=== PATIENT | male | born 1995 | race Asian ===

== ENCOUNTER 2019-11-22 09:17 | Inpatient (IN) ==
[2019-11-22] MEDS ORDERED: Metoclopramide 5 MG/ML VIAL (10 mg) IV ONE (09:32)
[2019-11-22] MEDS ORDERED: NS 0.9% 1000 ml BAG 1,000 ML IV ONE (09:32)
[2019-11-22] MEDS ORDERED: Iohexol 300 (CONTRAST) 10 ML SDV IV ONE (09:49)
[2019-11-22] MEDS ORDERED: Morphine 4 MG/ML VIAL (1 ml) IV ONE (09:50)
[2019-11-22] MEDS ORDERED: Morphine 4 MG/ML VIAL (1 ml) ONE (09:51)
[2019-11-22 10:04] LABS: ABS Lymphocytes 1.5 10^3/ul (1.0-4.8); ABS Monocytes 0.7 10^3/ul (0-0.8); Eosinophil % 0.4 %; Hematocrit 41 % (42-52); Hemoglobin 14.4 g/dL (14.0-18.0); Lymphocyte % 16.2 %; Mean Corpuscular HGB Conc 35 g/dL (31-36); Mean Corpuscular Hemoglobin 34 pg (27-31); Mean Corpuscular Volume 96 fL (80-94); Mean Platelet Volume 6.5 fL (7.4-10.4); Nucleated Red Blood Cells % 0.1; Platelet Count 461 10^3/uL (150-450); Red Blood Count 4.28 10^6 /uL (4.18-5.48); Red Cell Distribution Width 13 % (10-15); White Blood Count 9.4 10^3/uL (3.5-10.8)
[2019-11-22 10:23] LABS: ALT 17 U/L (7-52); AST 21 U/L (13-39); Albumin 4.7 g/dL (3.2-5.2); Alkaline Phosphatase 100 U/L (34-104); Anion Gap 18 mmol/L (2-11); BUN/Creatinine Ratio 12.7 (8-20); Blood Urea Nitrogen 15 mg/dL (6-24); C Reactive Protein 13.34 mg/L (<8.01); CO2 Carbon Dioxide 23 mmol/L (22-32); Calcium 10.7 mg/dL (8.6-10.3); Chloride 97 mmol/L (101-111); EGFR Non-African American 75.2 (>60); Globulin 4.6 g/dL (2-4); Glucose 114 mg/dL (70-100); Potassium 3.4 mmol/L (3.5-5.0); Sodium 138 mmol/L (135-145); Total Protein 9.3 g/dL (6.4-8.9)
[2019-11-22] MEDS ORDERED: Piperacillin/Tazobac ADVAN(*) 3.375 GM in NS 0.9% 100 ml BAG 100 ML IVPB ONE (10:24)
[2019-11-22] MEDS ORDERED: LORazepam 2 mg VIAL 1 ml IV PUSH ONE (10:25)
[2019-11-22] MEDS ORDERED: Lorazepam PYXIS KEY PRN (10:25)
[2019-11-22] MEDS ORDERED: Lorazepam PYXIS KEY ONE (10:28)
[2019-11-22] MEDS: NS 0.9% 1000 ml BAG 2,000 ML IV ONE (10:47)
[2019-11-22] MEDS ORDERED: HYDROcodone/ACETAMIN 5/325 mg TAB PO PRN (12:05)
[2019-11-22 12:10] LABS: Magnesium 1.8 mg/dL (1.9-2.7)
[2019-11-22] MEDS ORDERED: Magnesium Sulfate IV 1GM/100ML 1 GM/100 ML BAG IV ONE (12:28)
[2019-11-22] MEDS: NS 0.9% 1000 ml BAG 1,000 ML IV SCH ×2 (12:28→23:33)
[2019-11-22] MEDS: KCL 20 MEQ/100 ML IVPREMIX 20 MEQ/100 ML BAG IV SCH ×2 (12:28→16:40)
[2019-11-22 14:47] LABS: Urine Appearance Clear; Urine Bilirubin Negative (Negative); Urine Blood Negative (Negative); Urine Color Yellow; Urine Glucose Negative (Negative); Urine Ketones 1+ (Negative); Urine Nitrite Negative (Negative); Urine Protein Negative (Negative); Urine Urobilinogen Negative (Negative)
[2019-11-22] MEDS: Ondansetron 4 mg VIAL 2 MG/ML 2 ml VIAL IV PRN ×2 (16:48→22:00)
[2019-11-23 05:24] LABS: BUN/Creatinine Ratio 9.8 (8-20); Calcium 8.8 mg/dL (8.6-10.3); EGFR African American 138.5 (>60); EGFR Non-African American 114.5 (>60); Potassium 3.7 mmol/L (3.5-5.0)
[2019-11-23] MEDS: NS 0.9% 1000 ml BAG 1,000 ML IV SCH ×3 (07:12→22:49)
[2019-11-23] MEDS: Ondansetron 4 mg VIAL 2 MG/ML 2 ml VIAL IV PRN (09:53)
[2019-11-23] MEDS ORDERED: Prochlorperazine 5 mg/ml 2 ml VIAL (10 mg) IV PRN (09:58)
[2019-11-24] MEDS: NS 0.9% 1000 ml BAG 1,000 ML IV SCH (06:49)
[2019-11-24 10:34] VITALS: BP 119/61
== END 2019-11-24 11:45 | disposition home or self-care (01) | DRG 392 ==
LOC: ED 09:17 → MED 09:17
PROVIDERS: ADMIT Internal Medicine; ATTEND Internal Medicine